=== PATIENT | female | born 1985 | race Caucasian/White ===

== ENCOUNTER 2017-06-12 18:05 | Inpatient (IN) | payer OTHER ==
[2017-06-12] MEDS ORDERED: Sodium Chloride 0.9% 10 ML Syringe FLUSH PRN (20:13)
[2017-06-12] MEDS ORDERED: Oxytocin/Lactated Ringers 10 UNIT/1,000 ML BAG IV SCH ×2 (20:15→23:45)
[2017-06-12] MEDS: Lactated Ringers 1,000 ML IV SCH ×3 (20:57→23:26)
[2017-06-12] MEDS ORDERED: Bupivacaine 0.25% 10 ML SDV ONE (22:00)
[2017-06-12] MEDS ORDERED: Bupivacaine/fentaNYL/NS 100 ML Bag EPIDUR SCH (22:00)
--- NOTE | 2017-06-12 22:03 | PCM.PREANE ---
Preanesthetic Assessment - Procedure Proposed Procedure: Continuous Labour Epidural - Anesthesia/Transfusion/Family Hx Anesthesia History: Prior Anesthesia Without Reaction Family History of Anesthesia Reaction: No Transfusion History: No Prior Transfusion(s) Type of Transfusion Reactions: Reports: Unknown - Review of Systems General: No Symptoms Pulmonary: No Symptoms Cardiovascular: No Symptoms Gastrointestinal: No Symptoms Neurological: No Symptoms Other: Reports: None - Physical Assessment NPO Status Date: 06/12/17 NPO Status Time: 20:00 O2 Sat by Pulse Oximetry: 100 Respiratory Rate: 17 Vital Signs: Last Vital Signs Temp 36.9 C 06/12/17 18:29 Pulse 83 06/12/17 18:29 Resp 17 06/12/17 18:29 BP 121/63 06/12/17 18:29 Pulse Ox Height: 1.78 m Weight: 73.709 kg ASA Class: 2 Mental Status: Alert & Oriented x3 Airway Class: Mallampati = 1 Dentition: Reports: Normal Dentition Thyro-Mental Finger Breadths: 3 Mouth Opening Finger Breadths: 3 ROM/Head Extension: Full Lungs: Clear to Auscultation, Normal Respiratory Effort Cardiovascular: Regular Rate, Regular Rhythm, No Murmurs - Lab Values: Laboratory Last Values WBC 10.51 K/mm3 (3.98-10.04) H 06/12/17 20:33 RBC 3.87 M/mm3 (3.98-5.22) L 06/12/17 20:33 Hgb 11.5 gm/L (11.2-15.7) 06/12/17 20:33 Hct 34.4 % (34.1-44.9) 06/12/17 20:33 MCV 88.9 fl (79.4-94.8) 06/12/17 20:33 MCH 29.7 pg (25.6-32.2) 06/12/17 20:33 MCHC 33.4 g/dl (32.2-35.5) 06/12/17 20:33 RDW Std Deviation 41.0 fL (36.4-46.3) 06/12/17 20:33 Plt Count 181 K/mm3 (182-369) L 06/12/17 20:33 MPV 10.0 fl (9.4-12.3) 06/12/17 20:33 Neut % (Auto) 66.5 % (34.0-71.1) 06/12/17 20:33 Lymph % (Auto) 21.4 % (19.3-51.7) 06/12/17 20:33 [place] % (Auto) 10.3 % (4.7-12.5) 06/12/17 20:33 Eos % (Auto) 1.5 (0.7-5.8) 06/12/17 20:33 Baso % (Auto) 0.1 % (0.1-1.2) 06/12/17 20:33 Neut # (Auto) 6.99 K/mm3 (1.56-6.13) H 06/12/17 20:33 Lymph # (Auto) 2.25 K/mm3 (1.18-3.74) 06/12/17 20:33 [place] # (Auto) 1.08 K/mm3 (0.24-0.36) H 06/12/17 20:33 Eos # (Auto) 0.16 K/mm3 (0.04-0.36) 06/12/17 20:33 Baso # (Auto) 0.01 K/mm3 (0.01-0.08) 06/12/17 20:33 Blood Type O NEGATIVE 06/12/17 20:33 - Allergies Allergies/Adverse Reactions: Allergies Allergy/AdvReac Type Severity Reaction Status Date / Time No Known Allergies Allergy Verified 04/30/15 04:51 - Acknowledgements Anesthesia Type Planned: Epidural Pt an Appropriate Candidate for the Planned Anesthesia: Yes Alternatives and Risks of Anesthesia Discussed w Pt/Guardian: Yes Pt/Guardian Understands and Agrees with Anesthesia Plan: Yes 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: , Therapeutic Other OB/BYN History: Hx of Infertility - Past Surgical History HEENT Surgical History: Reports: Oral Surgery Other HEENT Surgeries/Procedures: [place] Teeth Removed in 2002 - SUBSTANCE USE Smoking Status *Q: Never Smoker Tobacco Use Within Last Twelve Months: No Second Hand Smoke Exposure: No Days Per Week of Alcohol Use: 0 Recreational Drug Use History: No - HOME MEDS Home Medications: Home Meds Pnv with Ca,No.71/Iron/Fa [ Vitamin Tablet] 1 each PO DAILY 04/30/15 [ History] - CURRENT (IN HOUSE) MEDS Current Meds: Current Medications Fentanyl/Bupivacaine HCl (Fentanyl/Bupivacaine/Ns 2 Mcg-0.125% 100 Ml) 100 ml EPIDUR ASDIRECTED TADEO Lactated Ringer's (Ringers, Lactated) 1,000 mls @ 100 mls/hr IV ASDIRECTED TADEO Last Admin: 06/12/17 20:57 Dose: 100 mls/hr Oxytocin/Lactated Ringer's (Pitocin In Lr 10 Units/1,000 Ml) 10 unit in 1,000 mls @ 500 mls/hr IV .CONTINUOUS TADEO PRN Reason: Protocol Sodium Chloride (Saline Flush) 10 ml FLUSH ASDIRECTED PRN PRN Reason: Keep Vein Open
[2017-06-12] MEDS ORDERED: Calcium Carbonate 500 MG Tab.Chew PO PRN ×2 (23:34→23:48)
--- NOTE | 2017-06-13 04:50 | PCM.LDHP ---
L&D History of Present Illness - General Date of Service: 06/12/17 Admit Problem/Dx: Patient Status Order with Admit Dx/Problem 06/12/17 20:13 Patient Status [ADT] Routine Admission Diagnosis/Problem Admission Diagnosis/Problem Source of Information: Patient - History of Present Illness Introduction:: Patient presented in active labor. Had been 3-4 cm in clinic with some contractions and bloody show. Presented having more painful contractions. PNC with myself without significant complications. History of infertility and IVF but this is spontaneous . - Related Data Allergies/Adverse Reactions: Allergies Allergy/AdvReac Type Severity Reaction Status Date / Time No Known Allergies Allergy Verified 04/30/15 04:51 Home Medications: Home Meds Pnv with Ca,No.71/Iron/Fa [ Vitamin Tablet] 1 each PO DAILY 04/30/15 [ History] Past Medical History [employer] History: Reports: , Therapeutic Other OB/BYN History: Hx of Infertility - Past Surgical History HEENT Surgical History: Reports: Oral Surgery Other HEENT Surgeries/Procedures: [place] Teeth Removed in 2002 Social & Family History - Family History HEENT: Reports: None - Tobacco Use Smoking Status *Q: Never Smoker Second Hand Smoke Exposure: No - Alcohol Use Days Per Week of Alcohol Use: 0 - Recreational Drug Use Recreational Drug Use: No H&P Review of Systems - Review of Systems: Review Of Systems: See Below General: Reports: No Symptoms HEENT: Reports: No Symptoms Pulmonary: Reports: No Symptoms Cardiovascular: Reports: No Symptoms Gastrointestinal: Reports: No Symptoms Genitourinary: Reports: No Symptoms Musculoskeletal: Reports: No Symptoms Skin: Reports: No Symptoms Psychiatric: Reports: No Symptoms Neurological: Reports: No Symptoms Hematologic/Lymphatic: Reports: No Symptoms Immunologic: Reports: No Symptoms L&D Exam - Exam Exam: See Below - Vital Signs Vital Signs: Last Vital Signs Temp 36.9 C 06/12/17 18:29 Pulse 83 06/12/17 18:29 Resp 17 06/12/17 22:02 BP 121/63 06/12/17 18:29 Pulse Ox 100 06/12/17 22:02 Weight: 73.709 kg - OB Specific Contraction Intensity: Moderate Movement: Active Heart Tones: Present Heart Tones per Min: 140 Heart Rate (FHR) Variability: Moderate (6-25 bmp) Presentation: Vertex - Hannah Score Hannah Score Cervix Position: Midposition Hannah Score Consistency: Medium Hannah Score Effacement: 51-70% Hannah Score Dilation: > 5 cm Hannah Score 's Station: -1 ,0 Hannah Score Total: 9 - Exam General: Alert, Oriented HEENT: PERRLA, Conjunctiva Clear, EACs Clear, EOMI, Hearing Intact, Mucosa Moist & [place], Nares Patent, Normal Nasal Septum, Posterior Pharynx Clear, TMs Clear Neck: Supple, Trachea Midline Lungs: Clear to Auscultation, Normal Respiratory Effort Cardiovascular: Regular Rate, Regular Rhythm GI/Abdominal Exam: Normal Bowel Sounds, Soft, Non-Tender, No Organomegaly, No Distention, No Abnormal Bruit, No Mass, Pelvis Stable Rectal Exam: Normal Exam, Normal Rectal Tone Genitourinary: Normal external exam, Normal bimanual exam, Normal speculum exam Back Exam: Normal Inspection, Full Range of Motion Extremities: Normal Inspection, Normal Range of Motion, Non-Tender, No Pedal Edema, Normal Capillary Refill Skin: Warm, Dry, Intact Neurological: Cranial Nerves Intact, Reflexes Equal Bilateral Psychiatric: Alert, Normal Affect, Normal Mood - Patient Data Lab Results Last 24 hrs: Laboratory Results - last 24 hr 06/12/17 06/12/17 Range/Units 20:33 20:33 WBC 10.51 H (3.98-10.04) K/mm3 RBC 3.87 L (3.98-5.22) M/mm3 Hgb 11.5 (11.2-15.7) gm/L Hct 34.4 (34.1-44.9) % MCV 88.9 (79.4-94.8) fl MCH 29.7 (25.6-32.2) pg MCHC 33.4 (32.2-35.5) g/dl RDW Std Deviation 41.0 (36.4-46.3) fL Plt Count 181 L (182-369) K/mm3 MPV 10.0 (9.4-12.3) fl Neut % (Auto) 66.5 (34.0-71.1) % Lymph % (Auto) 21.4 (19.3-51.7) % [place] % (Auto) 10.3 (4.7-12.5) % Eos % (Auto) 1.5 (0.7-5.8) Baso % (Auto) 0.1 (0.1-1.2) % Neut # (Auto) 6.99 H (1.56-6.13) K/mm3 Lymph # (Auto) 2.25 (1.18-3.74) K/mm3 [place] # (Auto) 1.08 H (0.24-0.36) K/mm3 Eos # (Auto) 0.16 (0.04-0.36) K/mm3 Baso # (Auto) 0.01 (0.01-0.08) K/mm3 Blood Type O NEGATIVE Gel Antibody Screen Positive Result Diagrams: 06/12/17 20:33 Problem List Initiated/Reviewed/Updated: Yes Orders Last 24hrs: Active Orders 24 hr Category Date Time Status Patient Status [ADT] Routine ADT 06/12/17 20:13 Active Activity as Tolerated [RC] PFP Care 06/12/17 20:13 Active Communication Order [RC] ASDIRECTED Care 06/12/17 20:13 Active Communication Order [RC] ASDIRECTED Care 06/12/17 21:55 Active Heart Tones [RC] ASDIRECTED Care 06/12/17 20:13 Active Notify Provider [RC] ASDIRECTED Care 06/12/17 21:55 Active Notify Provider [RC] PFP Care 06/12/17 20:13 Active Notify Provider [RC] PRN Care 06/12/17 20:13 Active Oxygen Therapy [RC] ASDIRECTED Care 06/12/17 21:55 Active Peripheral IV Care [RC] . DIRECTED Care 06/12/17 20:13 Active Vital Signs [RC] PER UNIT ROUTINE Care 06/12/17 18:29 Active ANTIBODY IDENTIFICATION [BBK] Routine Lab 06/12/17 20:33 Results TYPE AND SCREEN [BBK] Routine Lab 06/12/17 20:33 Results Bupivacaine/fentaNYL/NS [fentaNYL/Bupivacaine/NS 2 MCG- Med 06/12/17 22:00 Active 0.125% 100 ML] 100 ml EPIDUR ASDIRECTED Calcium Carbonate [Tums] Med 06/12/17 23:48 Active 1,000 mg PO Q2H PRN Lactated Ringers [Ringers, Lactated] 1,000 ml Med 06/12/17 20:15 Active IV ASDIRECTED Oxytocin/Lactated Ringers [Pitocin in LR 10 Units/1,000 Med 06/12/17 20:15 Active ML] 10 unit in 1,000 ml IV .CONTINUOUS Oxytocin/Lactated Ringers [Pitocin in LR 10 Units/1,000 Med 06/12/17 23:45 Active ML] 10 unit in 1,000 ml IV TITRATE Sodium Chloride 0.9% [Saline Flush] Med 06/12/17 20:13 Active 10 ml FLUSH ASDIRECTED PRN Electronic Heart Tones Ext w TOCO [WOMSER] Oth 06/12/17 20:13 Ordered Routine Electronic Heart Tones Internal [WOMSER] Per Unit Ot 06/12/17 20:13 Ordered Routine Peripheral IV Insertion Adult [OM.PC] Routine Ot 06/12/17 20:13 Ordered Pulse Oximetry Continuous Monitoring [OM.PC] Routine Ot 06/12/17 21:55 Active Resuscitation Status Routine Resus Stat 06/12/17 18:29 Ordered Medication Orders Calcium Carbonate/Glycine (Tums) 1,000 mg PO Q2H PRN PRN Reason: Indigestion Last Admin: 06/12/17 23:48 Dose: 1,000 mg Fentanyl/Bupivacaine HCl (Fentanyl/Bupivacaine/Ns 2 Mcg-0.125% 100 Ml) 100 ml EPIDUR ASDIRECTED TADEO Last Admin: 06/12/17 22:28 Dose: 100 ml Lactated Ringer's (Ringers, Lactated) 1,000 mls @ 100 mls/hr IV ASDIRECTED TADEO Last Admin: 06/12/17 23:26 Dose: 100 mls/hr Infusion: 06/12/17 23:26 Dose: 100 mls/hr Admin: 06/12/17 22:09 Dose: 100 mls/hr Infusion: 06/12/17 22:09 Dose: 100 mls/hr Admin: 06/12/17 20:57 Dose: 100 mls/hr Oxytocin/Lactated Ringer's (Pitocin In Lr 10 Units/1,000 Ml) 10 unit in 1,000 mls @ 500 mls/hr IV .CONTINUOUS TADEO PRN Reason: Protocol Oxytocin/Lactated Ringer's (Pitocin In Lr 10 Units/1,000 Ml) 10 unit in 1,000 mls @ 12 mls/hr IV TITRATE TADEO; 2 MUNITS/MIN PRN Reason: Protocol Last Titration: 06/13/17 02:11 Dose: 3 munits/min, 18 mls/hr Admin: 06/13/17 01:09 Dose: 2 munits/min, 12 mls/hr Sodium Chloride (Saline Flush) 10 ml FLUSH ASDIRECTED PRN PRN Reason: Keep Vein Open Assessment/Plan Comment:: Term labor. Doing well. Anesthesia per pt preferences. Anticipate .
[2017-06-13] MEDS ORDERED: Witch Hazel Medicated Pads 100/Jar TOP PRN (05:17)
[2017-06-13] MEDS ORDERED: Benzocaine/Menthol 20%-0.5% Spray 56 GM Canister TOP PRN (05:17)
[2017-06-13] MEDS ORDERED: Lanolin 100% Cream 7 GM Tube TOP PRN (05:17)
[2017-06-13] MEDS: Ibuprofen 600 MG Tab PO PRN ×3 (05:41→19:12)
[2017-06-13] MEDS: Docusate Sodium 100 MG Cap PO SCH ×2 (08:33→21:54)
--- NOTE | 2017-06-13 10:24 | PCM48HPAN ---
Post Anesthesia Note - EVALUATION WITHIN 48HRS OF ANESTHETIC Vital Signs in Normal Range: Yes Patient Participated in Evaluation: Yes Respiratory Function Stable: Yes Airway Patent: Yes Cardiovascular Function Stable: Yes Hydration Status Stable: Yes Pain Control Satisfactory: Yes Nausea and Vomiting Control Satisfactory: Yes Mental Status Recovered: Yes - COMMENTS/OBSERVATIONS Free Text/Narrative:: Patient denies any headaches, back pain, or residual numbness or tingling to LE.
[2017-06-14] MEDS: Ibuprofen 600 MG Tab PO PRN ×2 (02:05→08:38)
[2017-06-14] MEDS: Docusate Sodium 100 MG Cap PO SCH ×2 (08:37→21:08)
--- NOTE | 2017-06-15 07:37 | PCM.DCSUM1 ---
Discharge Summary - Discharge Data Discharge Date: 06/15/17 Discharge Disposition: Home, Self-Care 01 Condition: Good - Patient Summary/Data Hospital Course: Unremarkable labor and course. - Patient Instructions Diet: Heart Healthy Diet Activity: No Strenuous Activities Driving: May Drive Today Showering/Bathing: May Shower Notify Provider of: Fever, Increased Pain, Swelling and Redness, Drainage, Nausea and/or Vomiting - Discharge Plan Home Medications: Home Meds Pnv with Ca,No.71/Iron/Fa [ Vitamin Tablet] 1 each PO DAILY 04/30/15 [ History] Referrals: Emilia Morales MD [Primary Care Provider] - (6 wk) - Discharge Summary/Plan Comment DC Time >30 min.: No - General Info Date of Service: 06/15/17 Functional Status: Reports: Pain Controlled - Review of Systems General: Reports: No Symptoms HEENT: Reports: No Symptoms Pulmonary: Reports: No Symptoms Cardiovascular: Reports: No Symptoms Gastrointestinal: Reports: No Symptoms Genitourinary: Reports: No Symptoms Musculoskeletal: Reports: No Symptoms Skin: Reports: No Symptoms Neurological: Reports: No Symptoms Psychiatric: Reports: No Symptoms - Patient Data Vitals - Most Recent: Last Vital Signs Temp 36.6 C 06/15/17 03:44 Pulse 77 06/15/17 03:44 Resp 15 06/15/17 03:44 BP 111/55 L 06/15/17 03:44 Pulse Ox 100 06/15/17 03:44 Weight - Most Recent: 73.709 kg I&O - Last 24 hours: Intake & Output 06/14/17 06/15/17 06/15/17 22:59 06:59 14:59 Intake Total 0 Balance 0 Med Orders - Current: Current Medications Benzocaine/Menthol (Dermoplast Pain Relief [place]) 0 gm TOP ASDIRECTED PRN PRN Reason: Perineal Comfort Measure Last Admin: 06/13/17 05:42 Dose: 1 applic Docusate Sodium (Colace) 100 mg PO BID TADEO Last Admin: 06/14/17 21:08 Dose: 100 mg Emollient Ointment (Lansinoh Hpa) 0 gm TOP ASDIRECTED PRN PRN Reason: Sore Nipples Ibuprofen (Motrin) 600 mg PO Q6H PRN PRN Reason: Mild pain or fever Last Admin: 06/14/17 08:38 Dose: 600 mg Witch Bessie (Tucks) 1 pad TOP ASDIRECTED PRN PRN Reason: Hemorrhoid pain Last Admin: 06/13/17 05:42 Dose: 1 applic Discontinued Medications Bupivacaine HCl (Sensorcaine-Mpf 0.25%) 10 ml .ROUTE .STK-MED ONE Stop: 06/12/17 22:01 Calcium Carbonate/Glycine (Tums) 500 mg PO Q2H PRN PRN Reason: Indigestion Calcium Carbonate/Glycine (Tums) 1,000 mg PO Q2H PRN PRN Reason: Indigestion Last Admin: 06/12/17 23:48 Dose: 1,000 mg Fentanyl/Bupivacaine HCl (Fentanyl/Bupivacaine/Ns 2 Mcg-0.125% 100 Ml) 100 ml EPIDUR ASDIRECTED TADEO Last Admin: 06/12/17 22:28 Dose: 100 ml Lactated Ringer's (Ringers, Lactated) 1,000 mls @ 100 mls/hr IV ASDIRECTED TADEO Last Admin: 06/12/17 23:26 Dose: 100 mls/hr Oxytocin/Lactated Ringer's (Pitocin In Lr 10 Units/1,000 Ml) 10 unit in 1,000 mls @ 500 mls/hr IV .CONTINUOUS TADEO PRN Reason: Protocol Oxytocin/Lactated Ringer's (Pitocin In Lr 10 Units/1,000 Ml) 10 unit in 1,000 mls @ 12 mls/hr IV TITRATE TADEO; 2 MUNITS/MIN PRN Reason: Protocol Last Titration: 06/13/17 02:11 Dose: 3 munits/min, 18 mls/hr Sodium Chloride (Saline Flush) 10 ml FLUSH ASDIRECTED PRN PRN Reason: Keep Vein Open - Exam General: Reports: Alert, Oriented HEENT: Reports: Pupils Equal, Pupils Reactive, EOMI, Mucous Membr. Moist/[place] Neck: Reports: Supple Lungs: Reports: Clear to Auscultation, Normal Respiratory Effort Cardiovascular: Reports: Regular Rate, Regular Rhythm GI/Abdominal Exam: Normal Bowel Sounds, Soft, Non-Tender, No Organomegaly, No Distention, No Abnormal Bruit, No Mass, Pelvis Stable (Female) Exam: Normal External Exam, Normal Speculum Exam, Normal Bimanual Exam Back Exam: Reports: Normal Inspection, Full Range of Motion Extremities: Normal Inspection, Normal Range of Motion, Non-Tender, No Pedal Edema, Normal Capillary Refill Skin: Reports: Warm, Dry, Intact Wound/Incisions: Reports: Healing Well Neurological: Reports: No New Focal Deficit Psy/Mental Status: Reports: Alert, Normal Affect, Normal Mood *Q Meaningful Use (DIS) - VTE *Q VTE Criteria *Q: - Stroke *Q Stroke Criteria *Q: - AMI *Q AMI Criteria *Q:
[2017-06-15] MEDS: Ibuprofen 600 MG Tab PO PRN (08:05)
[2017-06-15] MEDS: Docusate Sodium 100 MG Cap PO SCH (08:05)
[2017-06-15 08:34] VITALS: BP 106/64
== END 2017-06-15 09:00 | disposition home or self-care (01) | DRG 775 ==
LOC: JD.OB 18:05 → JD.OBCHECK 18:05 → JD.OB 20:13 → JD.OBCHECK 20:13 → JD.OB 06-13 04:29 → OBSVTOIN 06-13 04:29
PROVIDERS: ADMIT Obstetrics & Gynecology; ATTEND Obstetrics & Gynecology
PROC: 10E0XZZ Delivery of Products of Conception, External Approach (ICD-10-PCS; principal; 2017-06-13)
PROC: 0HQ9XZZ Repair Perineum Skin, External Approach (ICD-10-PCS; 2017-06-13)
PROC: 10907ZC Drainage of Amniotic Fluid, Therapeutic from Products of Conception, Via Natural or Artificial Opening (ICD-10-PCS; 2017-06-13)
PROC: 00HU33Z Insertion of Infusion Device into Spinal Canal, Percutaneous Approach (ICD-10-PCS; 2017-06-13)
PROC: 3E0R3CZ (ICD-10-PCS; 2017-06-13)
DX: O70.0 First degree perineal laceration during delivery (principal); Z3A.37 37 weeks gestation of pregnancy; Z37.0 Single live birth
CPT/HCPCS: 01967; 36415; 85025; 85461; 86850; 86870; 86900; 86901; A9270-GY; J2590; J2790; J7120